=== PATIENT | female | born 1995 | race Asian ===

== ENCOUNTER → 2020-12-19 | Outpatient (CLI) | payer OTHER ==
[2020-12-19 12:16] LABS: APPEARANCE,URINE CLEAR (CLEAR); BILIRUBIN,URINE NEGATIVE (NEGATIVE); GLUCOSE, URINE (UA) NEGATIVE (NEGATIVE); KETONES,URINE NEGATIVE (NEGATIVE); LEUKOCYTE ESTERASE ,URINE TRACE (NEGATIVE); NITRATE,URINE NEGATIVE (NEGATIVE); OCCULT BLOOD,URINE NEGATIVE (NEGATIVE); PH,URINE 6.5 (5.0-8.0); PROTEIN,URINE NEGATIVE (NEGATIVE); UROBILINOGEN,URINE 0.2 mg/dL (<=1.0)
[2020-12-19 13:04] LABS: BACTERIA,URINE Rare /HPF (None Seen); RBC,URINE None Seen /HPF (0-2); SQUAMOUS EPITHELIAL CELL,UR Rare /LPF (None Seen); WBC,URINE 0-2 /HPF (0-5)
== END | disposition home or self-care (01) ==
LOC: LABPV 10:42
PROVIDERS: ATTEND Internal Medicine
DX: R30.0 Dysuria (principal)
CPT/HCPCS: 81001; 84703; 87077; 87086; 87186

== ENCOUNTER 2021-03-19 21:21 | Emergency (ER) | payer SELFPAY ==
[~2021-03-19] VITALS: Ht 152.4 cm; Wt 63.2 kg
[2021-03-19 22:09] LABS: APPEARANCE,URINE SL CLOUDY (CLEAR); BILIRUBIN,URINE NEGATIVE (NEGATIVE); GLUCOSE, URINE (UA) NEGATIVE (NEGATIVE); KETONES,URINE NEGATIVE (NEGATIVE); LEUKOCYTE ESTERASE ,URINE LARGE (NEGATIVE); OCCULT BLOOD,URINE LARGE (NEGATIVE); PROTEIN,URINE SEE CONFIRM (NEGATIVE)
[2021-03-19 22:15] LABS: BACTERIA,URINE Few /HPF (None Seen); NITRATE,URINE NEGATIVE (NEGATIVE); SQUAMOUS EPITHELIAL CELL,UR Moderate /LPF (None Seen); SULFOSALICYLIC ACID,URINE 2+ (Negative); WBC,URINE 51-100 /HPF (0-5)
[2021-03-19] MEDS ORDERED: NITR100C4 PO (23:44)
[2021-03-19] MEDS ORDERED: PHEN-1103 PO (23:44)
[2021-03-19] MEDS ORDERED: NITROFURANTOIN/NITROFURAN MAC 100 MG CAPSULE [MACROBID] PO ONE (23:45)
[2021-03-19] MEDS ORDERED: PHENAZOPYRIDINE HCL 100 MG TABLET PO ONE (23:45)
[2021-03-19 23:50] VITALS: BP 105/65
== END 2021-03-20 03:05 | disposition home or self-care (01) ==
LOC: EMS 21:22
DX: N39.0 Urinary tract infection, site not specified (principal)
CPT/HCPCS: 81001; 81002; 84703; 87086; 99283